=== PATIENT | male | born 1935 | race Caucasian/White ===

== ENCOUNTER → 2018-08-13 | Outpatient (CLI) | payer MEDICARE ==
[~2018-08-13] MED LIST: ASPIR-LOW81 MG PO; ASPIRIN E.C. 8181 MG PO; CALCIUM 600 PLU1 TAB PO; CEPHALEXIN500 M1 PO; CIPRO 500MG TA500 MG PO; METFORMIN ER500 MG PO; POTASSIUM595 MG PO; PYRIDIUM 100MG100 MG PO; SIMVASTATIN20 MG PO; TRILIPIX 135MG PO; VYTORIN
== END ==
LOC: COL.RAD 10:20
DX: K86.1 Other chronic pancreatitis (principal); M47.816 Spondylosis without myelopathy or radiculopathy, lumbar region; K86.89 Other specified diseases of pancreas
CPT/HCPCS: Q9967

== ENCOUNTER 2018-12-14 15:41 | Emergency (ER) | payer MEDICARE ==
[~2018-12-14] VITALS: Ht 177.8 cm; Wt 70.5 kg
[2018-12-14 15:46] VITALS: TEMP 97.7
[2018-12-14] MEDS ORDERED: GLUCOPHAGE1000 MG PO (15:54)
[2018-12-14] MEDS ORDERED: CREON 60000 U-11 ECC PO (15:55)
[2018-12-14 17:22] VITALS: BP 143/59; PULSE 76
== END 2018-12-14 17:44 | disposition home or self-care (01) ==
LOC: COL.ER 15:41
DX: S51.011A Laceration without foreign body of right elbow, initial encounter (principal); S70.01XA Contusion of right hip, initial encounter; E11.9 Type 2 diabetes mellitus without complications; S60.511A Abrasion of right hand, initial encounter; I10 Essential (primary) hypertension; Z79.84 Long term (current) use of oral hypoglycemic drugs; Z87.891 Personal history of nicotine dependence; Z79.82 Long term (current) use of aspirin; W18.39XA Other fall on same level, initial encounter; Y92.59 Other trade areas as the place of occurrence of the external cause

== ENCOUNTER → 2021-03-12 | Outpatient (CLI) | payer MEDICARE ==
[~2021-03-12] MED LIST changes: +CREON 60000 U-11 ECC PO; +GLUCOPHAGE1000 MG PO
== END ==
LOC: COL.VAS 12:40
DX: I08.0 Rheumatic disorders of both mitral and aortic valves (principal)